=== PATIENT | male | born 1945 | race Caucasian/White ===

== ENCOUNTER 2017-11-24 17:12 | Observation (INO) | payer BC, OTHER ==
[~2017-11-24] VITALS: Ht 182.9 cm; Wt 82.7 kg
[~2017-11-24 17:12] MED LIST: ASPI81TA28 PO; ATOR-54 PO; METF500T PO; MULT-506 PO
[2017-11-24] MEDS ORDERED: SODIUM CHLORIDE 0.9% 1000ML 1,000 ML IV STA (17:23)
[2017-11-24] MEDS ORDERED: METOCLOPRAMIDE HCL INJ 5 MG/ML 2 ML VIAL IV STA (17:33)
--- NOTE | 2017-11-24 17:37 | EMERGENCY ROOM VISIT NOTE ---
History Report prepared by Trista: Felix Nowak Under the Supervision of: Dr. Cisco Rand M.D. First contact with patient: 17:21 Chief Complaint: HYPERTENSION Stated Complaint: CHEST PAIN, ICE HANDS, HTN- History of Present Illness The patient is a 72 year old male who presents to the Emergency Room with complaints of an episode of dizziness beginning this morning at 1015. The patient states that he was diagnosed with orthostatic hypertension three years ago. He notes that he often becomes lightheaded when it is hot, when he exercises, or when he eats. He reports that he was on the treadmill this morning. After fifteen minutes on the treadmill, he states that he became very dizzy. The patient notes that he laid down on the couch for about 15-20 minutes , and he reports that he is unsure if he lost consciousness. He states that he then fell asleep in bed for about an hour. He also complains of cold sweats, which he notes that he has never experienced before. He reports that after he woke up, he noticed tightness in his chest around at 1400. The patient states that his blood pressure was 195/109 about an hour ago, which he notes is unusually high for him. He also complains of nausea and a headache. He denies any fever. He reports that he has no current chest pressure. The patient states that he feels mildly lightheaded at baseline, but notes that his dizziness today was much worse than usual, prompting his visit to the emergency department today. Source of History: patient Onset: this morning at 1015 Position: head Quality: other (dizziness) Timing: other (an episode) Associated Symptoms: + headache, + nausea, No fevers Note: The patient also complains of a cold sweat, chest tightness, and a blood pressure of 195/109. Review of Systems See HPI for pertinent positives and negatives. A total of ten systems were reviewed and were otherwise negative. Past Medical & Surgical Medical Problems: (1) Orthostatic hypertension Family History No pertinent family history stated. Social History Smoking Status: Never Smoker Marital Status: Housing Status: lives with family Occupation Status: retired Current/Historical Medications Scheduled Aspirin (Aspirin Ec), 81 MG PO HS Atorvastatin (Lipitor), 20 MG PO HS Fludrocortisone Acetate (Florinef), 0.5 TAB PO DAILY Lisinopril (Zestril), 30 MG PO DAILY Metformin Hcl (Glucophage), 500 MG PO BIDM Multivitamin (Multivitamin), 1 TAB PO QPM Pindolol (Visken), 5 MG PO DAILY Pyridostigmine [place] (Mestinon), 90 MG PO TIDM Allergies Coded Allergies: No Known Allergies (Unverified , 11/24/17) Physical Exam Vital Signs Date Time Temp Pulse Resp B/P (MAP) Pulse Ox O2 Delivery O2 Flow Rate FiO2 11/24/17 21:06 68 11/24/17 20:00 62 18 178/93 98 Room Air 11/24/17 18:30 62 18 150/84 98 Room Air 11/24/17 17:58 64 11/24/17 17:57 97 Room Air 11/24/17 17:57 63 16 195/90 97 Room Air 61 182/89 66 169/90 11/24/17 17:15 36.6 69 20 220/91 99 Room Air Physical Exam GENERAL: Awake, alert, fatigued and uncomfortable appearing, in no distress HENT: Normocephalic, atraumatic. Oropharynx unremarkable. EYES: Normal conjunctiva. Sclera non-icteric. NECK: Supple. No nuchal rigidity. FROM. No JVD. RESPIRATORY: Clear to auscultation. CARDIAC: Regular rate, normal rhythm. Extremities warm and well perfused. Pulses equal. ABDOMEN: Soft, non-distended. No tenderness to palpation. No rebound or guarding. No masses. RECTAL: Deferred. MUSCULOSKELETAL: Chest examination reveals no tenderness. The back is symmetrical on inspection without obvious abnormality. There is no CVA tenderness to palpation. No joint edema. LOWER EXTREMITIES: Calves are equal size bilaterally and non-tender. No edema. No discoloration. NEURO: Normal sensorium. No sensory or motor deficits noted. Neuro intact. Normal cerebellar function with [id number], alternating palms, [id number]. SKIN: No rash or jaundice noted. Skin was cool and clammy. Medical Decision & Procedures ER Provider Diagnostic Interpretation: Radiology results as stated below per my review and radiologist interpretation: CHEST ONE VIEW PORTABLE FINDINGS: The cardiac and mediastinal contours are normal. There is no evidence of focal pulmonary consolidation. There is no evidence of failure. No pleural effusions are visualized. IMPRESSION: No active disease in the chest. Electronically signed by: Kb Hooper M.D. 11/24/2017 5:45 PM Dictated Date/Time: 11/24/2017 5:45 PM Laboratory Results 11/24/17 17:57 Red Blood Count 5.04, Mean Corpuscular Volume 89.5, Mean Corpuscular Hemoglobin 31.7, Mean Corpuscular Hemoglobin Concent 35.5, Mean Platelet Volume 10.3, Neutrophils (%) (Auto) 67.3, Lymphocytes (%) (Auto) 18.4, Monocytes (%) (Auto) 12.5, Eosinophils (%) (Auto) 1.2, Basophils (%) (Auto) 0.2, Neutrophils # (Auto ) 5.53, Lymphocytes # (Auto) 1.51, Monocytes # (Auto) 1.03, Eosinophils # (Auto ) 0.10, Basophils # (Auto) 0.02 11/24/17 17:57 Test 11/24/17 17:57 11/24/17 17:58 White Blood Count 8.22 K/uL (4.8-10.8) Red Blood Count 5.04 M/uL (4.7-6.1) Hemoglobin 16.0 g/dL (14.0-18.0) Hematocrit 45.1 % (42-52) Mean Corpuscular Volume 89.5 fL (80-100) Mean Corpuscular Hemoglobin 31.7 pg (25-34) Mean Corpuscular Hemoglobin Concent 35.5 g/dl (32-36) Platelet Count 284 K/uL (130-400) Mean Platelet Volume 10.3 fL (7.4-10.4) Neutrophils (%) (Auto) 67.3 % Lymphocytes (%) (Auto) 18.4 % Monocytes (%) (Auto) 12.5 % Eosinophils (%) (Auto) 1.2 % Basophils (%) (Auto) 0.2 % Neutrophils # (Auto) 5.53 K/uL (1.4-6.5) Lymphocytes # (Auto) 1.51 K/uL (1.2-3.4) Monocytes # (Auto) 1.03 K/uL (0.11-0.59) Eosinophils # (Auto) 0.10 K/uL (0-0.5) Basophils # (Auto) 0.02 K/uL (0-0.2) RDW Standard Deviation 40.0 fL (36.4-46.3) RDW Coefficient of Variation 12.4 % (11.5-14.5) Immature Granulocyte % (Auto) 0.4 % Immature Granulocyte # (Auto) 0.03 K/uL (0.00-0.02) Anion Gap 8.0 mmol/L (3-11) Est Creatinine Clear Calc Drug Dose 64.3 ml/min Estimated GFR () 74.1 Estimated GFR (Non- 63.9 BUN/Creatinine Ratio 11.9 (10-20) Calcium Level 8.9 mg/dl (8.5-10.1) Phosphorus Level 3.3 mg/dl (2.5-4.9) Magnesium Level 1.8 mg/dl (1.8-2.4) Total Bilirubin 0.7 mg/dl (0.2-1) Direct Bilirubin 0.1 mg/dl (0-0.2) Aspartate Amino Transf (AST/SGOT) 48 U/L (15-37) Alanine Aminotransferase (ALT/SGPT) 64 U/L (12-78) Alkaline Phosphatase 77 U/L (45-117) Troponin I < 0.015 ng/ml (0-0.045) Total Protein 8.0 gm/dl (6.4-8.2) Albumin 4.3 gm/dl (3.4-5.0) Lipase 279 U/L (73-393) Bedside Troponin I < 0.030 ng/ml (0-0.045) Laboratory results reviewed by me Medications Administered Medications (Trade) Dose Ordered Sig/Earle Route Start Time Stop Time Status Last Admin Dose Admin Sodium Chloride 1,000 ml @ 999 mls/hr Q1H1M STAT IV 11/24/17 17:23 11/24/17 18:23 DC 11/24/17 17:55 999 MLS/HR Metoclopramide HCl (Reglan Inj) 10 mg NOW STAT IV 11/24/17 17:33 11/24/17 17:34 DC 11/24/17 17:56 10 MG Aspirin (Aspirin Chew) 324 mg NOW STAT PO 11/24/17 19:28 11/24/17 19:29 DC 11/24/17 19:33 324 MG ECG Per My Interpretation Indication: chest pain Rate (beats per minute): 71 Rhythm: sinus rhythm Findings: 1st degree AV block, RBBB, left axis deviation, other (Nonspecific conduction delay, QRS 154, left ventricular hypertrophy with repolarization abnormality) Comparison ECG Date: 07/28/2015 Change: Compared to prior EKG in the [facility] [employer] system, the patient's first EKG was mostly normal. EKG #2: Sinus rhythm, rate 61, 1st degree AV block, QRS 148, RBBB, no acute ischemia, caveat: interior lateral limb leads question lead reversal. ED Course 172: The patient was evaluated in room C9. A complete history and physical exam was performed. 1800: I reevaluated and updated the patient. 1912: I rechecked the patient. He is agreeable to getting admitted. 1921: Upon reexamination, the patient was stable. I discussed the test results and treatment plan with him. Discussed the patient's case with Dr. Bajwa - Hospitalist, [facility]. The patient will be evaluated for further management. Medical Decision I reviewed the patient's past medical history, medications, and the nursing notes as described above. Differential diagnosis: Etiologies such as cardiac ischemia, aortic dissection, pulmonary embolism, pneumonia, pneumothorax, musculoskeletal, infections, pericarditis, myocarditis , esophageal rupture, gastrointestinal, as well as others were entertained. The patient is a 72-year-old gentleman with a past medical history of orthostatic hypotension and near syncope who presents emergency department with episode of near syncope question syncope when he was on the treadmill at 10:30 AM this morning with associated nausea and diaphoresis and later developing transient chest pain per hpi. On arrival the patient is fatigued appearing in no acute distress however with school and clammy skin denying chest pain at this time. He is afebrile with stable vital signs. Neuro intact including normal cerebellar function with [id number], alternating palms, heel-to- bedolla. Patient's EKG appears similar to his outpatient EKG in the [facility] EMR however repeat EKG does show inferior lateral limb lead changes that may be related to limb lead reversal as subsequent EKGs were consistent without changes. Troponin negative greater than 6 hours of onset of symptoms. Labs otherwise unremarkable including WBC within normal limits. Chest x-ray negative. She feeling some improvement with IV fluid hydration but still feeling generally weak and lightheaded. The patient's history of mild coronary disease, as well as the description of his symptoms including nausea diaphoresis chest pain, heart score is 7, moderate risk, and therefore reasonable to admit the patient for further cardiac rule out and likely nuclear stress test. Of note the patient did have a heart catheterization in August 2014 which demonstrated 30% narrowing of the LAD and 40% narrowing of the proximal LAD diagonal and 30% narrowing of the origin of the proximal RCA as well as mild hypokinesis of the inferior wall with preserved ejection fraction of 60%. Case was discussed with Dr. Bajwa, who will admit the patient for further management. Medication Reconcilliation Current Medication List: was personally reviewed by me Blood Pressure Screening Patient's blood pressure: Elevated blood pressure Elevated blood pressure will be monitored by hospitalist. Consults Time Called: 1916 Consulting Physician: Dr. Bajwa - HospitalistKim Returned Call: 1921 I discussed the patient with Dr. Bajwa. He will evaluate the patient for further treatment. Impression Primary Impression: Near syncope Additional Impression: Substernal chest pain Scribe Attestation The scribe's documentation has been prepared under my direction and personally reviewed by me in its entirety. I confirm that the note above accurately reflects all work, treatment, procedures, and medical decision making performed by me. Departure Information Dispostion Being Evaluated By Hospitalist Referrals Eduin Maciel M.D. (MEDICAL) (PCP) Patient Instructions [facility] Problem Qualifiers
--- NOTE | 2017-11-24 17:46 | DIAGNOSTIC IMAGING REPORT ---
CHEST ONE VIEW PORTABLE CLINICAL HISTORY: Atypical chest pain COMPARISON STUDY: No previous studies for comparison. FINDINGS: The cardiac and mediastinal contours are normal. There is no evidence of focal pulmonary consolidation. There is no evidence of failure. No pleural effusions are visualized.[ IMPRESSION: No active disease in the chest. Electronically signed by: Kb Hooper M.D. 11/24/2017 5:45 PM Dictated Date/Time: 11/24/2017 5:45 PM
[2017-11-24 18:08] LABS: BASO % 0.2 %; BASO ABS # 0.02 K/uL (0-0.2); EOS % 1.2 %; HEMATOCRIT 45.1 % (42-52); IG# 0.03 K/uL (0.00-0.02); LYMPH % 18.4 %; LYMPH ABS # 1.51 K/uL (1.2-3.4); MEAN CELL VOLUME 89.5 fL (80-100); MEAN CORPUSCULAR HEMOGLOBIN 31.7 pg (25-34); MEAN CORPUSCULAR HGB CONC 35.5 g/dl (32-36); MEAN PLATELET VOLUME 10.3 fL (7.4-10.4); MONO % 12.5 %; MONO ABS # 1.03 K/uL (0.11-0.59); NEUT % 67.3 %; NEUT ABS # 5.53 K/uL (1.4-6.5); PLATELET COUNT 284 K/uL (130-400); RED CELL DISTRIBUTION WIDTH CV 12.4 % (11.5-14.5); WHITE BLOOD COUNT 8.22 K/uL (4.8-10.8)
[2017-11-24 18:30] LABS: ALBUMIN 4.3 gm/dl (3.4-5.0); ALKALINE PHOSPHATASE 77 U/L (45-117); ALT/SGPT 64 U/L (12-78); AST/SGOT 48 U/L (15-37); BLOOD UREA NITROGEN 14 mg/dl (7-18); CALCIUM 8.9 mg/dl (8.5-10.1); CARBON DIOXIDE 26 mmol/L (21-32); CREATININE 1.14 mg/dl (0.60-1.40); GLUCOSE 112 mg/dl (70-99); LIPASE 279 U/L (73-393); PHOSPHORUS 3.3 mg/dl (2.5-4.9); POTASSIUM 4.2 mmol/L (3.5-5.1); SODIUM 137 mmol/L (136-145)
[2017-11-24] MEDS ORDERED: VSK5 PO (18:46)
[2017-11-24] MEDS ORDERED: PYRI60TA2 PO (18:46)
[2017-11-24] MEDS ORDERED: LISI-863 PO (18:46)
[2017-11-24] MEDS ORDERED: FLUD0.1T10 PO (18:46)
[2017-11-24] MEDS ORDERED: ASPIRIN 81 MG CHEW PO STA (19:28)
[2017-11-24] MEDS ORDERED: ALUMINUM/MAGNESIUM/SIMETH (MAALOX MAX) 30 ML UDC PO PRN (21:45)
[2017-11-24] MEDS ORDERED: NITROGLYCERIN 0.4 MG SL PER TAB CHARGE SL PRN (21:45)
[2017-11-24] MEDS ORDERED: POLYETHYLENE (MIRALAX) 17 GM PACK PO PRN (21:45)
[2017-11-24] MEDS ORDERED: ONDANSETRON INJ 2 MG/ML 2 ML VIAL IV PRN (21:45)
[2017-11-24] MEDS ORDERED: ACETAMINOPHEN 325 MG TAB PO PRN (21:45)
[2017-11-24 23:50] VITALS: BP 183/93; PULSE 65; O2SAT 96; Ht 182.9 cm; Wt 82.7 kg
[2017-11-25 00:40] VITALS: TEMP 36.6
[2017-11-25 01:42] VITALS: BP 152/79; PULSE 65
--- NOTE | 2017-11-25 01:58 | HISTORY & PHYSICAL EXAMINATION ---
DATE OF ADMISSION: 11/24/2017 CHIEF COMPLAINT: Near syncope, some chest discomfort. HISTORY OF PRESENT ILLNESS: This is a 72-year-old male with past medical history significant for orthostatic hypotension, type 2 diabetes, hyperlipidemia, history of non Hodgkin lymphoma, hx of non obstructive CAD presents with presyncope and chest discomfort. The patient was doing elliptical today. After 15 minutes, he felt severely dizzy, he immediately stopped and sat down for some time and then he went back to his bed and slept for about an hour. He passed out 2-3 times about 3 years ago. He also felt mild chest discomfort for very short period of time. Couple of times, when he passed out he did not know that he passed out. But this time, he thinks he has not passed out. But when he woke up, his blood pressure was 140 range, but after some time, it was climbing up to 190, which concerned him and he came to the ER. In the ER, he received fluids for possible dehydration because of history of orthostatic hypotension.Initial blood pressure in ER was in 200's, but has come down to 140 now. Still has some dizziness and mild headache. Denies any blurred visions. Has some nausea from his medications. Currently resting comfortably and hemodynamically stable. No earache, No runny nose, no sore throat, no difficulty swallowing. No cough, no fever, no chills, no abdominal pain. Normal bowel and bladder movements. Ambulatory status okay. ALLERGIES: No known drug allergies. PAST MEDICAL HISTORY: As mentioned above. PAST SURGICAL HISTORY: Laminectomy, tonsillectomy, adenoidectomy, inguinal hernia repair. MEDICATIONS: Currently, patient is on pindolol 5 mg daily in the evening, lisinopril 30 mg p.o. daily, multivitamin 1 tablet daily, pyridostigmine 90 mg p.o. t.i.d., aspirin 81 mg p.o. daily, , Lipitor 20 mg p.o. at bedtime, Florinef 0.1 mg half-tablet daily, metformin 500 mg p.o. b.i.d. FAMILY HISTORY: Significant for mother had uterine cancer, Alzheimer disease. Father has dementia. Brother has diabetes. SOCIAL HISTORY: . No smoking history. No alcohol use and no drug use. REVIEW OF SYMPTOMS: As per HPI. Rest of review of symptoms negative. PHYSICAL EXAMINATION: GENERAL: The patient is of moderate build, not in distress. VITAL SIGNS: Temperature 36.6, pulse 68, respiratory rate 18, blood pressure currently 140/95, oxygen 98% room air. HEENT: No pallor, no icterus. Pupils equal, round, and reactive to light. NECK: No JVD. No neck masses, no carotid bruits. CARDIOVASCULAR: S1, S2 heard, regular rate and rhythm, no murmur, no gallop. RESPIRATORY SYSTEM: Clear to auscultation bilaterally. No wheezing, no crackles. ABDOMEN: Soft, bowel sounds present. Nontender. No distention. CENTRAL NERVOUS SYSTEM: Cranial nerves II-XII grossly intact. Nonfocal. EXTREMITIES: No edema, no erythema. LABS: WBC8.2, hemoglobin 16, hematocrit 45.1, platelets 284. Sodium 137, potassium 4.2, chloride 103, bicarbonate 26, BUN 14, creatinine 1.1, serum glucose 112, calcium 8.9, phosphorus 3.3, magnesium 1.8, total bilirubin 0.7, direct bilirubin 0.1, AST 42, ALT 64, alkaline phosphatase 77. Troponin I less than 0.015. Lipase 279. Chest x-ray, no acute disease in the chest. EKG shows some sinus rhythm with first-degree AV block at a rate of 61, right bundle branch block .One of the ekg showed t wave inversions in inferior leads but subsequent ekgs were ok. Possible because of lead placement ASSESSMENT AND PLAN: This is a 72-year-old male who presents with dizziness and near syncope. 1. Dizziness and near syncope. This happened while he was exercising and his blood pressure was very high later in the day. Initial cardiac workup is negative, we will repeat EKG, troponin, echocardiogram, and consult cardiology in a.m. Monitor on tele floor.One of the EKG showed t wave inversion in inferior lead but subsequent ekgs were ok. Possible due to lead placement. patient currently asymptomatic 2. History of orthostatic hypotension. The patient on Florinef and pyridostigmine.Will monitor 3. History of hypertension. The patient is on lisinopril and pindolol. Blood pressure was high today, possibly situational. We will monitor his blood pressure in the hospital. 4. History of diabetes. Hold metformin. Placed on insulin sliding scale. 5. Hyperlipidemia. Continue statin. 6. History of coronary artery disease, status post catheterization in 08/2014, which shows non obstructive disease with 30% narrowing at the mid LAD, 40% narrowing of the proximal proximal left anterior descending diagonal, and 30% narrowing of the origin of the proximal right coronary artery, mild hypokinesis inferior wall with preserved EF. Medical management recommended. Cardiology consultation in a.m. for further recommendations. 7. DVT prophylaxis, SCDs and TEDs. 8. Disposition: Observation, tele floor. Expect to discharge home and follow with his family doctor. Level 1 full code. MTDD
[2017-11-25 05:25] VITALS: BP 158/78; PULSE 62; TEMP 36.6; O2SAT 93
[2017-11-25 07:30] LABS: BASO % 0.2 %; BASO ABS # 0.01 K/uL (0-0.2); EOS % 2.7 %; EOS ABS # 0.17 K/uL (0-0.5); HEMATOCRIT 42.3 % (42-52); HEMOGLOBIN 14.7 g/dL (14.0-18.0); IG# 0.01 K/uL (0.00-0.02); LYMPH % 30.6 %; LYMPH ABS # 1.94 K/uL (1.2-3.4); MEAN CELL VOLUME 89.2 fL (80-100); MEAN CORPUSCULAR HGB CONC 34.8 g/dl (32-36); MEAN PLATELET VOLUME 10.1 fL (7.4-10.4); MONO % 9.6 %; MONO ABS # 0.61 K/uL (0.11-0.59); NEUT % 56.7 %; PLATELET COUNT 250 K/uL (130-400); RED CELL DISTRIBUTION WIDTH CV 12.3 % (11.5-14.5); RED CELL DISTRIBUTION WIDTH SD 39.7 fL (36.4-46.3); WHITE BLOOD COUNT 6.34 K/uL (4.8-10.8)
[2017-11-25 07:54] VITALS: BP 164/84; PULSE 64; TEMP 36.2; O2SAT 95
[2017-11-25 08:02] LABS: CALCIUM 8.4 mg/dl (8.5-10.1); POTASSIUM 3.9 mmol/L (3.5-5.1)
[2017-11-25] MEDS: PYRIDOSTIGMINE BROMIDE 60 MG TAB PO SCH ×2 (08:32→11:43)
[2017-11-25] MEDS ORDERED: NURSING VERBAL MED ORDER ONE (08:45)
[2017-11-25] MEDS ORDERED: FLUDROCORTISONE ACETATE 0.1 MG TAB PO SCH (09:00)
[2017-11-25] MEDS ORDERED: PINDOLOL PO SCH ×2 (09:00→21:00)
[2017-11-25] MEDS ORDERED: LISINOPRIL 10 MG TAB PO SCH (09:00)
--- NOTE | 2017-11-25 09:00 | ECHOCARDIOGRAM REPORT ---
*NOTICE TO RECEIVING [employer] This information is strictly Confidential and protected under [place] law. [place] law prohibits you from making any further disclosure of this information unless further disclosure is expressly permitted by the written consent of the person to whom it pertains or is authorized by law. A general authorization for the release of medical or other information is not sufficient for this purpose. Hospital accepts no responsibility if the information is made available to any other person, INCLUDING THE PATIENT. Interpretation Summary * Name: HAL ZENG Study Date: 11/25/2017 06:32 AM BP: 158/78 mmHg * Patient Location: [facility]\S\N286\S\2 HR: 62 * : 1945 (M/d/yyyy) Gender: Male Height: 72 in * Age: 72 yrs Ethnicity: [place] Weight: 180 lb * Ordering Physician: Ralph Bajwa * Referring Physician: Self, Referred * Performed By: Joanie Man RDCS * * Reason For Study: Syncope * BSA: 2.0 m2 * -- Conclusions -- * The left ventricle is normal in size. * There is normal left ventricular wall thickness. * Ejection Fraction = 60-65%. * Left ventricular systolic function is normal. * The left ventricular wall motion is normal. * The right ventricle is normal in size and function. * The right ventricular systolic function is normal as assessed by tricuspid annular plane systolic excursion (TAPSE) (normal >1.5 cm). * The right atrium is mildly dilated. * Grade I diastolic dysfunction, (abnormal relaxation pattern). * Normal LA Pressures Procedure Details * A complete two-dimensional transthoracic echocardiogram was performed (2D, M-mode, Doppler and color flow Doppler). Left Ventricle * The left ventricle is normal in size. * There is normal left ventricular wall thickness. * Ejection Fraction = 60-65%. * Left ventricular systolic function is normal. * The left ventricular wall motion is normal. Right Ventricle * The right ventricle is normal in size and function. * The right ventricular systolic function is normal as assessed by tricuspid annular plane systolic excursion (TAPSE) (normal >1.5 cm). Atria * The left atrial size is normal. * The right atrium is mildly dilated. Mitral Valve * The mitral valve is grossly normal. * There is no mitral regurgitation noted. Tricuspid Valve * The tricuspid valve is not well visualized, but is grossly normal. * There is trace tricuspid regurgitation. Aortic Valve * The aortic valve is trileaflet. Pulmonic Valve * The pulmonic valve is not well seen, but is grossly normal. * Trace pulmonic valvular regurgitation. Great Vessels * The aortic root is normal size. Pericardium/Pleural * There is no pericardial effusion. Great Vessels * Normal inferior vena cava size and collapsability with sniff indicates a normal right atrial pressure of 3 mmHg Left Ventricular Diastolic Function * Grade I diastolic dysfunction, (abnormal relaxation pattern). * Normal LA Pressures MMode 2D Measurements and Calculations IVSd 10 cm IVSs 1.2 cm LVIDd 4.3 cm LVIDs 2.6 cm LVPWd 1.2 cm LVPWs 1.8 cm IVS/LVPW 0.87 FS 40.9 % EDV(Teich) 85.3 ml ESV(Teich) 23.9 ml EF(Teich) 72.0 % EDV(cubed) 82.2 ml ESV(cubed) 17.0 ml EF(cubed) 79.4 % % IVS thick 17.1 % % LVPW thick 53.5 % LV mass(C)d 160.4 grams LV mass(C)dI 78.7 grams/m\S\2 LV mass(C)s 125.2 grams LV mass(C)sI 61.5 grams/m\S\2 SV(Teich) 61.4 ml SI(Teich) 30.1 ml/m\S\2 SV(cubed) 65.3 ml SI(cubed) 32.0 ml/m\S\2 Ao root diam 2.6 cm Ao root area 5.3 cm\S\2 ACS 1.6 cm LA dimension 3.5 cm LA/Ao 1.3 LVAd ap4 28.6 cm\S\2 LVLd ap4 8.3 cm EDV(MOD-sp4) 84.8 ml EDV(sp4-el) 83.7 ml LVAs ap4 13.6 cm\S\2 LVLs ap4 6.6 cm ESV(MOD-sp4) 24.6 ml ESV(sp4-el) 23.8 ml EF(MOD-sp4) 71.1 % EF(sp4-el) 71.5 % LVAd ap2 26.5 cm\S\2 LVLd ap2 8.3 cm EDV(MOD-sp2) 77.3 ml EDV(sp2-el) 72.2 ml LVAs ap2 16.4 cm\S\2 LVLs ap2 7.4 cm ESV(MOD-sp2) 31.2 ml ESV(sp2-el) 30.8 ml EF(MOD-sp2) 59.6 % EF(sp2-el) 57.3 % LVLd %diff -0.53 % EDV(MOD-bp) 80.4 ml LVLs %diff 10.7 % ESV(MOD-bp) 29.3 ml EF(MOD-bp) 63.6 % SV(MOD-sp4) 60.3 ml SI(MOD-sp4) 29.6 ml/m\S\2 SV(MOD-sp2) 46.0 ml SI(MOD-sp2) 22.6 ml/m\S\2 SV(MOD-bp) 51.1 ml SI(MOD-bp) 25.1 ml/m\S\2 SV(sp4-el) 59.8 ml SI(sp4-el) 29.4 ml/m\S\2 SV(sp2-el) 41.4 ml SI(sp2-el) 20.3 ml/m\S\2 Doppler Measurements and Calculations MV E max jozef 55.6 cm/sec MV A max jozef 86.3 cm/sec MV E/A 0.65 MV dec time 0.32 sec Ao V2 max 131.0 cm/sec Ao max PG 6.9 mmHg Ao max PG (full) -0.12 mmHg LV V1 max PG 7.0 mmHg LV V1 max 132.1 cm/sec PA V2 max 120.8 cm/sec PA max PG 5.8 mmHg TR max jozef 192.6 cm/sec
--- NOTE | 2017-11-25 11:06 | CARDIOLOGY CONSULTATION ---
DATE OF CONSULTATION: 11/25/2017 REQUESTING PHYSICIAN: Ralph Bajwa MD ENGINEERING PROJECT MANAGER PHYSICIAN: Matthew Lynn D.O., [facility]. REASON FOR CONSULTATION: Presyncope in a patient with known orthostatic hypotension. Dear Dr. Bajwa: Thank you for requesting cardiology consultation on Jose G with regards to his episode with exercise where he felt lightheaded and dizzy and had to lay down. As you know, he is a very pleasant 72-year-old gentleman who does not look his stated age who approximately 3 years ago, had multiple episodes of syncope. After an extensive workup including going to [facility], he was then seen by an autonomic physician specializing in autonomic dysfunction in [place], [place]. He has been followed there and had adjustment of his medications over the last 3 years and he notes up until this episode, he has actually felt relatively well in the last week or two. He notes that is the best he has felt in a long time. He describes in the past being on higher dose of Florinef, but it caused him significant hypertension. He was then placed on Mestinon and with Mestinon, he has had a dramatic improvement in his overall orthostatic symptoms. He does admit he probably does not drink as much as he should. He is also aware of triggers that make it worse including eating within an hour of exercise, dehydration, getting too hot and overexerting himself. He was on an elliptical. He did exercise for about 15 minutes. All of a sudden he did not quite feel well. He was lightheaded. He describes some tunnel vision. This was typical of his symptoms. He had some mild queasiness, which is also typical. He denied any paresthesias. He denied any racing of his heart. He got off the elliptical and laid down and he notes he just did not feel well for about 15 minutes or so. He does not think he lost consciousness. With his episodes 2-3 years ago, he had about 30 seconds or so of loss of consciousness. They were witnessed episodes. There was no seizure activity at that time. His concern was that he was profusely diaphoretic with this episode and when he finally felt better, which did take an extended period of time, his blood pressure was very high with a systolic blood pressure in the 180s. Given this concern, he came to the Emergency Room, his blood pressure was in the 200s when he first came. It then subsequently improved. He currently denies any chest pain, chest pressure, chest heaviness. He notes after these episodes, it can take him day or 2 until he feels better. He does have a slight headache this morning and feels mildly weak after eating this morning. He denies any dark stools, black stools, cough, productive sputum. His appetite and weight are stable. Denies any chest pressure, shortness of breath, PND, orthopnea. His functional capacity is relatively stable. PAST MEDICAL HISTORY: 1. Autonomic dysfunction with significant orthostatic hypotension. 2. Diabetes mellitus type 2. 3. Hyperlipidemia. 4. History of non-Hodgkin's lymphoma. 5. History of nonobstructive coronary artery disease status post cardiac catheterization 08/2014 with 40% narrowing in the proximal LAD, 30% narrowing in the mid LAD, 30% narrowing of the origin of the right coronary artery; nondominant circumflex with luminal irregularities. 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 SOCIAL HISTORY: He is retired. He is . Denies any tobacco or alcohol use. He worked in [employer]. FAMILY HISTORY: Significant for uterine cancer, Alzheimer disease, and dementia. MEDICATIONS: Reviewed in electronic medical record. ALLERGIES: No known drug allergies. PHYSICAL EXAMINATION: GENERAL: He is awake, alert, oriented x3. He is in no acute distress. A well-appearing male, looks younger than his stated age. VITAL SIGNS: His heart rate is 64, blood pressure 164/84, sats 95% on room air. HEENT: 2+ carotid upstrokes, no evidence of carotid bruits. Jugular venous pressure appeared normal. Sclerae is anicteric. Hearing is normal. LUNGS: Clear to auscultation bilaterally. No rales, rhonchi or wheezing. HEART: Regular rate and rhythm. No appreciable murmurs, rubs or gallops. ABDOMEN: Soft, nontender, nondistended. Positive bowel sounds. EXTREMITIES: No clubbing, cyanosis or edema. PSYCHIATRIC: His affect appeared appropriate. NEUROLOGIC: Grossly nonfocal. LABORATORY STUDIES: His troponins are negative. His CBC is normal. His BMP is normal and he does not appear prerenal. His troponins are negative. Total cholesterol 145, LDL 65, HDL 41. Chest x-ray, no active disease. Echocardiogram essentially normal echo with mild right atrial enlargement, normal biventricular size and function. EKGs were reviewed including his previous EKGs from 3 years ago, normal sinus rhythm, right bundle branch block, left posterior fascicular block. Of note, the initial EKG at 1717 on 11/24/2017 suggested a left anterior fascicular block as opposed to all the other EKGs that suggest a left posterior fascicular block. IMPRESSION: 1. Known autonomic dysfunction with significant orthostatic hypotension. 2. Episode of presyncope. 3. Normal echocardiogram. 4. [id number] nonobstructive coronary artery disease from 2014. 5. First degree atrioventricular block with a right bundle branch block and a left posterior fascicular block. As best I can tell, I think this was one of his episodes of autonomic dysfunction. 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 (it does not appear to be related to limb lead reversal) and then all the others are more consistent with left posterior fascicular block. 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 With regards to his medications, Mestinon seems to have improved his symptoms dramatically, continues to be followed by a specialist in [place], [place]. I recommend that he just reach out to them to let him know that he had an episode. There is nothing to suggest an acute coronary syndrome. I did recommend he consider wearing a 4-week event recorder given his trifascicular block just to rule out a high degree AV block. If that is negative and he continues to have episodes and there is a concern that they are not his typical orthostatic symptoms. I would consider an implantable loop recorder. Additionally, we discussed the need to stay well hydrated, does not sound like he drinks enough. We also discussed the need for compression stockings as well as prehydrating and staying hydrated with exercise. We also discussed the use of a G2 to help increase his blood volume. He had a question with regards to clonidine, which he was given in [place]. I discussed and I would only use it if his blood pressure is greater than 200 mmHg. My concern would be with clonidine; it may rapidly drop his blood pressure and he may become significantly orthostatic in the short term. Thank you for participating in his care.
[2017-11-25 15:53] VITALS: BP 161/81; PULSE 62; O2SAT 96
[2017-11-25] MEDS ORDERED: PYRIDOSTIGMINE BROMIDE 60 MG TAB PO ONE (16:02)
[2017-11-25] MEDS ORDERED: CTP1X PO (16:35)
--- NOTE | 2017-11-25 16:36 | Progress Note ---
Medicine Progress Note Date & Time of Visit: Nov 25, 2017 at 16:35 . Subjective Admitted last night for near-syncope and fluctuating BP's. History of orthostatic hypotension attributed to autonomic dysfunction. Feels better today. Mild headache / lightheadedness. No syncope or near-syncope. No CP or SOB. No arrhythmias on cardiac monitoring. . Objective Last 8 Hrs Date Time Temp Pulse Resp B/P (MAP) Pulse Ox O2 Delivery O2 Flow Rate FiO2 11/25/17 15:53 62 20 161/81 (107) 96 Room Air Physical Exam: General- no distress Lungs- clear to auscultation; no respiratory distress Cardiovascular- RRR; no murmur; no gallop; no JVD; no pretibial edema Abdomen- + bowel sounds, soft, nontender Extremities- no cyanosis; no calf tenderness Neuro- alert, oriented Skin- warm & dry . Laboratory Results: Last 24 Hours Test 11/24/17 17:57 11/24/17 17:58 11/25/17 00:14 11/25/17 07:01 White Blood Count 8.22 K/uL 6.34 K/uL Red Blood Count 5.04 M/uL 4.74 M/uL Hemoglobin 16.0 g/dL 14.7 g/dL Hematocrit 45.1 % 42.3 % Mean Corpuscular Volume 89.5 fL 89.2 fL Mean Corpuscular Hemoglobin 31.7 pg 31.0 pg Mean Corpuscular Hemoglobin Concent 35.5 g/dl 34.8 g/dl Platelet Count 284 K/uL 250 K/uL Mean Platelet Volume 10.3 fL 10.1 fL Neutrophils (%) (Auto) 67.3 % 56.7 % Lymphocytes (%) (Auto) 18.4 % 30.6 % Monocytes (%) (Auto) 12.5 % 9.6 % Eosinophils (%) (Auto) 1.2 % 2.7 % Basophils (%) (Auto) 0.2 % 0.2 % Neutrophils # (Auto) 5.53 K/uL 3.60 K/uL Lymphocytes # (Auto) 1.51 K/uL 1.94 K/uL Monocytes # (Auto) 1.03 K/uL 0.61 K/uL Eosinophils # (Auto) 0.10 K/uL 0.17 K/uL Basophils # (Auto) 0.02 K/uL 0.01 K/uL RDW Standard Deviation 40.0 fL 39.7 fL RDW Coefficient of Variation 12.4 % 12.3 % Immature Granulocyte % (Auto) 0.4 % 0.2 % Immature Granulocyte # (Auto) 0.03 K/uL 0.01 K/uL Sodium Level 137 mmol/L 139 mmol/L Potassium Level 4.2 mmol/L 3.9 mmol/L Chloride Level 103 mmol/L 106 mmol/L Carbon Dioxide Level 26 mmol/L 28 mmol/L Anion Gap 8.0 mmol/L 6.0 mmol/L Blood Urea Nitrogen 14 mg/dl 12 mg/dl Creatinine 1.14 mg/dl 1.00 mg/dl Est Creatinine Clear Calc Drug Dose 64.3 ml/min 73.3 ml/min Estimated GFR () 74.1 86.8 Estimated GFR (Non- 63.9 74.9 BUN/Creatinine Ratio 11.9 12.0 Random Glucose 112 mg/dl 110 mg/dl Calcium Level 8.9 mg/dl 8.4 mg/dl Phosphorus Level 3.3 mg/dl Magnesium Level 1.8 mg/dl 1.7 mg/dl Total Bilirubin 0.7 mg/dl Direct Bilirubin 0.1 mg/dl Aspartate Amino Transf (AST/SGOT) 48 U/L Alanine Aminotransferase (ALT/SGPT) 64 U/L Alkaline Phosphatase 77 U/L Troponin I < 0.015 ng/ml < 0.015 ng/ml Total Protein 8.0 gm/dl Albumin 4.3 gm/dl Lipase 279 U/L Bedside Troponin I < 0.030 ng/ml Bedside Glucose 129 mg/dl Triglycerides Level 197 mg/dl Cholesterol Level 145 mg/dl HDL Cholesterol 41 mg/dl LDL Cholesterol, Calculated 65 mg/dl VLDL Cholesterol, Calculated 39 mg/dl Cholesterol/HDL Ratio 3.5 Test 11/25/17 08:09 11/25/17 11:22 Bedside Glucose 140 mg/dl 128 mg/dl Assessment & Plan NEAR-SYNCOPE No arrhythmias noted during hospital stay. Seen in consultation by Cardiology. Symptoms most likely secondary to orthostatic hypotension. Outpatient cardiac monitoring recommended. ORTHOSTATIC HYPOTENSION / SUPINE HYPERTENSION Continue fludrocortisone, pindolol, lisinopril, pyridostigmine. CORONARY ARTERY DISEASE Nonocclusive disease per cath. Continue aspirin, pindolol, statin. DYSLIPIDEMIA LDL-c = 65. Continue atorvastatin. DM TYPE 2 Well-controlled. FBS 140. Continue metformin. VTE PROPHYLAXIS SCD's ordered. Ambulating. DISPOSITION Discharge to home. Patient does not have a PCP at this time. Local Cardiology follow-up with Dr. Lynn. Cardiology follow-up for orthostatic hypotension at [facility]: Neftali Crawley MD [address] [facility] [address] [place] [phone] . Current Inpatient Medications: Current Inpatient Medications Medications (Trade) Dose Ordered Sig/Earle Route Start Time Stop Time Status Last Admin Dose Admin Acetaminophen (Tylenol Tab) 650 mg Q4H PRN PO 11/24/17 21:45 12/24/17 21:44 Al Hydrox/Mg Hydrox/Simethicone (Maalox Max Susp) 15 ml Q4H PRN PO 11/24/17 21:45 12/24/17 21:44 Ondansetron HCl (Zofran Inj) 4 mg Q6H PRN IV 11/24/17 21:45 12/24/17 21:44 Nitroglycerin (Nitrostat Tab) 0.4 mg UD PRN SL 11/24/17 21:45 12/24/17 21:44 Polyethylene (Miralax Powder Packet) 17 gm DAILY PRN PO 11/24/17 21:45 12/24/17 21:44 Aspirin (Ecotrin Tab) 81 mg HS PO 11/25/17 21:00 12/25/17 20:59 Atorvastatin Calcium (Lipitor Tab) 20 mg HS PO 11/25/17 21:00 12/25/17 20:59 Fludrocortisone Acetate (Florinef Tab) 0.05 mg DAILY PO 11/25/17 09:00 12/25/17 08:59 11/25/17 08:31 0.05 MG Lisinopril (Zestril Tab) 30 mg DAILY PO 11/25/17 09:00 12/25/17 08:59 11/25/17 08:31 30 MG Multivitamins (Multivitamin Tab) 1 tab QPM PO 11/25/17 21:00 12/25/17 20:59 Pyridostigmine Mas[place] (Mestinon Tab) 90 mg TIDM PO 11/25/17 08:00 12/25/17 07:59 11/25/17 11:43 90 MG Non-Formulary Medication (Non-Formulary Patient'S Own Med) 1 ea QPM PO 11/25/17 21:00 12/25/17 20:59
--- NOTE | 2017-11-25 16:39 | Discharge Instructions ---
Discharge Instructions Date of Service Nov 25, 2017. Admission Reason for Admission: Near Syncope Discharge Discharge Diagnosis / Problem: orthostatic hypotension, autonomic neuropathy Discharge Goals Goal(s): Improve disease control Activity Recommendations Activity Limitations: resume your previous activity . Instructions / Follow-Up Instructions / Follow-Up APPOINTMENTS: CARDIOLOGY [facility] Dr. Lynn Please contact his office for appointment. CARDIOLOGY [facility] Dr. Crawley. OTHER INSTRUCTIONS: Arrange for outpatient heart monitor as instructed by Dr. Lynn. Seek medical attention if you have: * temperature above 101 * chest pain or trouble breathing * abdominal pain, nausea, vomiting * diarrhea, dark stools or bloody stools * any unanswered questions or concerns Call 911 if symptoms are severe. Call if you have any questions or problems. My cell # is [phone]. You can also reach a [facility] hospitalist on duty at [facility] 24 hours a day by calling [phone]. Please take good care of yourself. Terrence Lucio . Current Hospital Diet Patient's current hospital diet: AHA Diet (Heart Healthy) Discharge Diet Recommended Diet: AHA Diet (Heart Healthy) Pending Studies Studies pending at discharge: no Laboratory Results Lipid Panel Test 11/25/17 07:01 Range/Units Triglycerides Level 197 H 0-150 mg/dl Cholesterol Level 145 0-200 mg/dl HDL Cholesterol 41 mg/dl Cholesterol/HDL Ratio 3.5 LDL Cholesterol, Calculated 65 mg/dl Medical Emergencies . Who to Call and When: Medical Emergencies: If at any time you feel your situation is an emergency, please call 911 immediately. . Non-Emergent Contact Non-Emergency issues call your: Primary Care Provider, Fundraising Director, Hospital Doctor . . "Provider Documentation" section prepared by Terrence Lucio. .
[2017-11-25 16:48] VITALS: BP 161/81; PULSE 62; TEMP 36.2; O2SAT 96
[2017-11-25] MEDS ORDERED: ATORVASTATIN 20 MG TAB PO SCH (21:00)
[2017-11-25] MEDS ORDERED: MULTIVITAMIN TAB PO SCH (21:00)
[2017-11-25] MEDS ORDERED: ASPIRIN 81 MG ECTAB PO SCH (21:00)
--- NOTE | 2017-11-26 20:57 | Discharge Summary ---
Discharge Summary Date of Service Nov 26, 2017. Discharge Summary Admission Date: Nov 24, 2017 at 21:35 Discharge Date: Nov 25, 2017 Discharge Disposition: Home Principal Diagnosis: near-syncope . Secondary Diagnoses/Problems: Chronic and Resolved Medical Problems: (1) Autonomic dysfunction Status: Chronic (2) Coronary artery disease Permanent Comment: nonobstructive per cath Status: Chronic (3) Diabetes mellitus, type 2 Status: Chronic (4) Dyslipidemia Status: Chronic (5) History of non-Hodgkin's lymphoma Status: Chronic (6) Hypertension Status: Chronic (7) Orthostatic hypotension Status: Chronic . Procedures: cardiac monitoring echocardiogram . Consultations: Cardiology with Dr. Lynn . Medication Reconciliation Continued Medications: Aspirin (Aspirin Ec) 81 Mg Tab 81 MG PO HS Atorvastatin (Lipitor) 20 Mg Tab 20 MG PO HS, TAB Clonidine HCl (Clonidine HCl) 0.1 Mg Tab 0.1 MG PO Q8 PRN for systolic BP > 180 Fludrocortisone Acetate (Florinef) 0.1 Mg Tab 0.5 TAB PO DAILY, TAB Lisinopril (Zestril) 30 Mg Tab 30 MG PO DAILY, TAB Metformin Hcl (Glucophage) 500 Mg Tab 500 MG PO BIDM, TAB Multivitamin (Multivitamin) Tab 1 TAB PO QPM, TAB Pindolol (Visken) 5 Mg Tab 5 MG PO QPM, TAB Pyridostigmine [place] (Mestinon) 60 Mg Tab 90 MG PO TIDM Admission Information HPI (per Admitting provider): This is a 72-year-old male with past medical history significant for orthostatic hypotension, type 2 diabetes, hyperlipidemia, history of non Hodgkin lymphoma, hx of non obstructive CAD presents with presyncope and chest discomfort. The patient was doing elliptical today. After 15 minutes, he felt severely dizzy, he immediately stopped and sat down for some time and then he went back to his bed and slept for about an hour. He passed out 2-3 times about 3 years ago. He also felt mild chest discomfort for very short period of time. Couple of times, when he passed out he did not know that he passed out. But this time, he thinks he has not passed out. But when he woke up, his blood pressure was 140 range, but after some time, it was climbing up to 190, which concerned him and he came to the ER. In the ER, he received fluids for possible dehydration because of history of orthostatic hypotension.Initial blood pressure in ER was in 200's, but has come down to 140 now. Still has some dizziness and mild headache. Denies any blurred visions. Has some nausea from his medications. Currently resting comfortably and hemodynamically stable. No earache, No runny nose, no sore throat, no difficulty swallowing. No cough, no fever, no chills, no abdominal pain. Normal bowel and bladder movements. Ambulatory status okay. . Physical Exam (per Admitting): GENERAL: The patient is of moderate build, not in distress. VITAL SIGNS: Temperature 36.6, pulse 68, respiratory rate 18, blood pressure currently 140/95, oxygen 98% room air. HEENT: No pallor, no icterus. Pupils equal, round, and reactive to light. NECK: No JVD. No neck masses, no carotid bruits. CARDIOVASCULAR: S1, S2 heard, regular rate and rhythm, no murmur, no gallop. RESPIRATORY SYSTEM: Clear to auscultation bilaterally. No wheezing, no crackles. ABDOMEN: Soft, bowel sounds present. Nontender. No distention. CENTRAL NERVOUS SYSTEM: Cranial nerves II-XII grossly intact. Nonfocal. EXTREMITIES: No edema, no erythema. . Hospital Course NEAR-SYNCOPE No arrhythmias noted during hospital stay. Seen in consultation by Cardiology. Symptoms most likely secondary to orthostatic hypotension. Outpatient cardiac monitoring recommended. ORTHOSTATIC HYPOTENSION / SUPINE HYPERTENSION Continue fludrocortisone, pindolol, lisinopril, pyridostigmine. CORONARY ARTERY DISEASE Nonocclusive disease per cath. Continue aspirin, pindolol, statin. DYSLIPIDEMIA LDL-c = 65. Continue atorvastatin. DM TYPE 2 Well-controlled. FBS 140. Continue metformin. VTE PROPHYLAXIS SCD's ordered. Ambulating. DISPOSITION Discharge to home. Patient does not have a PCP at this time. Local Cardiology follow-up with Dr. Lynn. Cardiology follow-up for orthostatic hypotension at [facility]: Neftali Crawley MD [address] [place] [address] [place] [phone] . Discharge Instructions Discharge Instructions Date of Service Nov 25, 2017. Admission Reason for Admission: Near Syncope Discharge Discharge Diagnosis / Problem: orthostatic hypotension, autonomic neuropathy Discharge Goals Goal(s): Improve disease control Activity Recommendations Activity Limitations: resume your previous activity . Instructions / Follow-Up Instructions / Follow-Up APPOINTMENTS: CARDIOLOGY [facility] Dr. Lynn Please contact his office for appointment. CARDIOLOGY [facility] Dr. Crawley. OTHER INSTRUCTIONS: Arrange for outpatient heart monitor as instructed by Dr. Lynn. Seek medical attention if you have: * temperature above 101 * chest pain or trouble breathing * abdominal pain, nausea, vomiting * diarrhea, dark stools or bloody stools * any unanswered questions or concerns Call 911 if symptoms are severe. Call if you have any questions or problems. My cell # is [phone]. You can also reach a [facility] hospitalist on duty at [facility] 24 hours a day by calling [phone]. Please take good care of yourself. Terrence Lucio . Current Hospital Diet Patient's current hospital diet: AHA Diet (Heart Healthy) Discharge Diet Recommended Diet: AHA Diet (Heart Healthy) Pending Studies Studies pending at discharge: no Laboratory Results Lipid Panel Test 11/25/17 07:01 Range/Units Triglycerides Level 197 H 0-150 mg/dl Cholesterol Level 145 0-200 mg/dl HDL Cholesterol 41 mg/dl Cholesterol/HDL Ratio 3.5 LDL Cholesterol, Calculated 65 mg/dl Medical Emergencies . Who to Call and When: Medical Emergencies: If at any time you feel your situation is an emergency, please call 911 immediately. . Non-Emergent Contact Non-Emergency issues call your: Primary Care Provider, Engine Research Engineer, Hospital Doctor . . "Provider Documentation" section prepared by Terrence Lucio. .. Additional Copies To Matthew Lynn, DO Neftali Crawley MD
== END 2017-11-25 17:03 | disposition home or self-care (01) ==
LOC: C.EDB 17:14 → C.MED 21:35 → EDBEDREQ 21:51 → ENRESERV 22:46 → C.MED 11-25 00:20
PROVIDERS: ADMIT Hospitalist; ATTEND Hospitalist
DX: R42 Dizziness and giddiness (principal); I95.1 Orthostatic hypotension; I25.10 Atherosclerotic heart disease of native coronary artery without angina pectoris; E11.9 Type 2 diabetes mellitus without complications; E78.5 Hyperlipidemia, unspecified; I44.0 Atrioventricular block, first degree; I45.10 Unspecified right bundle-branch block; Z85.72 Personal history of non-Hodgkin lymphomas; Z79.82 Long term (current) use of aspirin; Z79.899 Other long term (current) drug therapy